=== PATIENT | female | born 1985 | race Hispanic/Latino ===

== ENCOUNTER 2019-10-21 21:49 | Emergency (ER) | payer BC ==
[2019-10-21] MEDS ORDERED: LIDOCAINE HCL 2% VISCOUS 15 ML UDCUP ONE (22:33)
[2019-10-21] MEDS ORDERED: PREDNISONE 20 MG TABLET ONE (22:33)
[2019-10-21] MEDS ORDERED: MAG HYDROX/AL HYDROX/SIMETH ES 30 ML SUSP UDCUP ONE (22:33)
[2019-10-21] MEDS ORDERED: ACETAMINOPHEN EXTRA STRENGTH 500 MG TABLET ONE (22:45)
[2019-10-21] MEDS ORDERED: CYCLOBENZAPRINE HCL 10 MG TABLET ONE (23:35)
== END 2019-10-22 00:07 | disposition home or self-care (01) ==
LOC: EDH 21:49
DX: B34.9 Viral infection, unspecified (principal); Z20.828 Contact with and (suspected) exposure to other viral communicable diseases; Z90.49 Acquired absence of other specified parts of digestive tract; Z79.899 Other long term (current) drug therapy
CPT/HCPCS: 36415; 71045; 87486; 87581; 87633; 87635; 87798; 87804

== ENCOUNTER 2019-10-30 19:51 | Emergency (ER) | payer BC | END 2019-10-30 20:38 | disposition home or self-care (01) | LOC: EDH 19:51 | DX: J06.9 Acute upper respiratory infection, unspecified (principal) | CPT/HCPCS: 99281 ==